=== PATIENT | male | born 1935 | race Caucasian/White ===

== ENCOUNTER 2021-05-31 14:38 | Inpatient (IN) | payer MEDICARE ==
[~2021-05-31] VITALS: Ht 177.8 cm; Wt 95.3 kg
[2021-05-31 15:14] LABS: BASOPHILS % 0.3 % (0.0-1.0); HEMATOCRIT 40.2 % (38.2-49.6); HEMOGLOBIN 12.5 g/dL (14.0-18.0); LYMPHOCYTES # (AUTO) 0.5 (1.0-3.2); LYMPHOCYTES % 4.3 % (18.0-39.1); MEAN CORPUSCULAR HGB CONC 31.1 g/dL (31-35); MEAN CORPUSCULAR VOLUME 99.8 fL (81-99); MONOCYTES # (AUTO) 0.8 (0.2-0.8); MONOCYTES % 6.9 % (4.4-11.3); NEUTROPHILS # (AUTO) 10.2 (2.1-6.9); PLATELET COUNT 285 x10e3/uL (140-360); RED BLOOD COUNT 4.03 x10e6/uL (4.3-5.7); RED CELL DISTRIBUTION WIDTH 15.4 % (11.7-14.4)
[2021-05-31 15:32] LABS: ALBUMIN 2.7 g/dL (3.5-5.0); ALBUMIN/GLOBULIN RATIO 0.6 (0.8-2.0); ANION GAP 20.2 mmol/L (8-16); CALCIUM 9.1 mg/dL (8.4-10.2); CREATININE, SERUM 0.97 mg/dL (0.72-1.25); POTASSIUM 5.2 mmol/L (3.5-5.1)
[2021-05-31] MEDS ORDERED: PIPERACILLIN/TAZOBACTAM 3.375 GM in SODIUM CHLORIDE 0.9% 50ML 50 ML IV ONE (16:15)
[2021-05-31] MEDS ORDERED: ACETAMINOPHEN 325 MG TAB PO ONE (16:15)
[2021-05-31] MEDS ORDERED: SODIUM CHLORIDE 0.9% 1000ML 1,000 ML IV STA (16:42)
[2021-05-31] MEDS ORDERED: DILTIAZEM HCL 5 MG/ML 5 ML VIAL IV ONE (16:45)
[2021-05-31] MEDS ORDERED: Vancomycin IV 1 GM in SODIUM CHLORIDE 0.9% 250ML 250 ML IV ONE (16:45)
[2021-05-31] MEDS ORDERED: LOSARTAN POTASS25 MG PO (18:45)
[2021-05-31] MEDS ORDERED: ATENOLOL50 MG PO (18:46)
[2021-05-31] MEDS ORDERED: MESALAMINE1 GM PO (18:48)
[2021-05-31 19:22] LABS: CREATINE KINASE MB 9.8 ng/mL (0-5.0)
[2021-05-31 21:05] VITALS: BP 157/56
[2021-05-31] MEDS ORDERED: QUETIAPINE FUMARATE 25 MG TAB PO ONE (21:37)
[2021-05-31] MEDS ORDERED: MELATONIN 5 MG TABLET PO ONE (21:37)
[2021-06-01] VITALS (10 sets, daily range): BP systolic 115–145; BP diastolic 57–90
[2021-06-01 00:58] LABS: CLARITY,URINE CLEAR (CLEAR); COLOR,URINE AMBER (YELLOW); KETONES,URINE 1+ (NEGATIVE); LEUKOCYTE ESTERASE ,URINE NEGATIVE (NEGATIVE); NITRITE,URINE NEGATIVE (NEGATIVE); PROTEIN,URINE DIPSTICK 1+ (NEGATIVE); URINE UROBILINOGEN 0.2 mg/dL (0.2 - 1)
[2021-06-01 01:04] LABS: AMORPHOUS SEDIMENT,URINE FEW (FEW); BACTERIA,URINE FEW /HPF; EPITHELIAL CELLS,URINE FEW /LPF; RBC,URINE 0-5 /HPF (0-5); WBC,URINE (MAN) 0-5 /HPF (0-5)
[2021-06-01 01:36] LABS: CREATININE,URINE RANDOM 126.12 mg/dL (63-166); TOTAL PROTEIN, URINE 35.7 mg/dL (1-14)
[2021-06-01 01:41] LABS: POTASSIUM,URINE 63.1 mmol/L
[2021-06-01] MEDS: PIPERACILLIN/TAZOBACTAM 3.375 GM in SODIUM CHLORIDE 0.9% 50ML 50 ML IV SCH ×5 (01:47→23:46)
[2021-06-01 06:20] LABS: BASOPHILS % 0.4 % (0.0-1.0); EOSINOPHILS # (AUTO) 0.1 (0.0-0.4); EOSINOPHILS % 0.7 % (0.0-6.0); HEMATOCRIT 35.6 % (38.2-49.6); HEMOGLOBIN 11.1 g/dL (14.0-18.0); LYMPHOCYTES # (AUTO) 0.6 (1.0-3.2); LYMPHOCYTES % 6.7 % (18.0-39.1); MEAN CORPUSCULAR HEMOGLOBIN 30.7 pg (28-32); MEAN CORPUSCULAR HGB CONC 31.2 g/dL (31-35); MEAN CORPUSCULAR VOLUME 98.3 fL (81-99); MONOCYTES # (AUTO) 0.6 (0.2-0.8); MONOCYTES % 6.4 % (4.4-11.3); NEUTROPHILS % 85.3 % (38.7-80.0); PLATELET COUNT 236 x10e3/uL (140-360); RED BLOOD COUNT 3.62 x10e6/uL (4.3-5.7); RED CELL DISTRIBUTION WIDTH 15.4 % (11.7-14.4)
[2021-06-01 06:47] LABS: ANION GAP 14.9 mmol/L (8-16); CALCIUM 8.3 mg/dL (8.4-10.2); CREATININE, SERUM 0.93 mg/dL (0.72-1.25); MAGNESIUM 1.9 MG/DL (1.3-2.1); POTASSIUM 3.9 mmol/L (3.5-5.1)
[2021-06-01] MEDS ORDERED: SODIUM CHLORIDE 0.9% 250ML 250 ML ONE (08:33)
[2021-06-01] MEDS: ATENOLOL 50 MG TAB PO SCH (09:00)
[2021-06-01] MEDS: SODIUM CHLORIDE 0.9% 1000ML 1,000 ML IV SCH (13:43)
[2021-06-01] MEDS: LINEZOLID 600 MG/D5W 300ML 300 ML IV SCH (14:30)
[2021-06-01 15:12] LABS: CREATINE KINASE MB 5.3 ng/mL (0-5.0)
[2021-06-01] MEDS: APIXAB 2.5 MG TABLET PO SCH (16:55)
[2021-06-01] MEDS: CLOTRIMAZOLE 1% CR 15 GM TOP SCH ×2 (20:33→23:25)
[2021-06-02] VITALS (8 sets, daily range): BP systolic 122–147; BP diastolic 74–94
[2021-06-02] MEDS: LINEZOLID 600 MG/D5W 300ML 300 ML IV SCH ×2 (02:30→14:00)
[2021-06-02] MEDS: SODIUM CHLORIDE 0.9% 1000ML 1,000 ML IV SCH (02:30)
[2021-06-02 05:20] LABS: ANION GAP 11.7 mmol/L (8-16); CREATININE, SERUM 0.82 mg/dL (0.72-1.25); POTASSIUM 3.7 mmol/L (3.5-5.1)
[2021-06-02] MEDS: PIPERACILLIN/TAZOBACTAM 3.375 GM in SODIUM CHLORIDE 0.9% 50ML 50 ML IV SCH ×3 (05:47→18:00)
[2021-06-02] MEDS: APIXAB 2.5 MG TABLET PO SCH ×2 (09:16→17:00)
[2021-06-02] MEDS: ATENOLOL 50 MG TAB PO SCH (09:21)
[2021-06-02] MEDS ORDERED: FUROSEMIDE INJ 10 MG/ML 4 ML VIAL IV ONE (10:45)
[2021-06-03] VITALS (9 sets, daily range): BP systolic 117–146; BP diastolic 62–101
[2021-06-03] MEDS: PIPERACILLIN/TAZOBACTAM 3.375 GM in SODIUM CHLORIDE 0.9% 50ML 50 ML IV SCH ×5 (01:00→23:21)
[2021-06-03] MEDS: LINEZOLID 600 MG/D5W 300ML 300 ML IV SCH ×2 (01:48→13:19)
[2021-06-03 08:24] LABS: ANION GAP 14.9 mmol/L (8-16); CALCIUM 8.2 mg/dL (8.4-10.2); CREATININE, SERUM 0.95 mg/dL (0.72-1.25); POTASSIUM 3.9 mmol/L (3.5-5.1)
[2021-06-03] MEDS: ATENOLOL 50 MG TAB PO SCH (08:46)
[2021-06-03] MEDS: APIXAB 2.5 MG TABLET PO SCH ×2 (08:46→17:04)
[2021-06-03] MEDS: CLOTRIMAZOLE 1% CR 15 GM TOP SCH (08:50)
[2021-06-04] VITALS (7 sets, daily range): BP systolic 130–136; BP diastolic 83–97
[2021-06-04] MEDS: LINEZOLID 600 MG/D5W 300ML 300 ML IV SCH (01:31)
[2021-06-04 03:52] LABS: BASOPHILS # (AUTO) 0.1 (0.0-0.1); BASOPHILS % 0.6 % (0.0-1.0); EOSINOPHILS # (AUTO) 0.2 (0.0-0.4); EOSINOPHILS % 2.7 % (0.0-6.0); HEMOGLOBIN 11.4 g/dL (14.0-18.0); LYMPHOCYTES # (AUTO) 0.8 (1.0-3.2); LYMPHOCYTES % 9.4 % (18.0-39.1); MEAN CORPUSCULAR HEMOGLOBIN 31.1 pg (28-32); MEAN CORPUSCULAR HGB CONC 31.7 g/dL (31-35); MEAN CORPUSCULAR VOLUME 98.4 fL (81-99); MONOCYTES # (AUTO) 0.6 (0.2-0.8); MONOCYTES % 6.8 % (4.4-11.3); NEUTROPHILS # (AUTO) 7.1 (2.1-6.9); PLATELET COUNT 231 x10e3/uL (140-360); RED BLOOD COUNT 3.66 x10e6/uL (4.3-5.7); RED CELL DISTRIBUTION WIDTH 15.5 % (11.7-14.4)
[2021-06-04 04:10] LABS: ANION GAP 12.7 mmol/L (8-16); CALCIUM 8.2 mg/dL (8.4-10.2); CREATININE, SERUM 0.86 mg/dL (0.72-1.25); POTASSIUM 3.7 mmol/L (3.5-5.1)
[2021-06-04] MEDS: PIPERACILLIN/TAZOBACTAM 3.375 GM in SODIUM CHLORIDE 0.9% 50ML 50 ML IV SCH ×3 (05:58→16:39)
[2021-06-04] MEDS: APIXAB 2.5 MG TABLET PO SCH ×2 (09:35→16:39)
[2021-06-04] MEDS: ATENOLOL 50 MG TAB PO SCH (09:35)
[2021-06-04] MEDS: CLOTRIMAZOLE 1% CR 15 GM TOP SCH (09:36)
[2021-06-04] MEDS: LINEZOLID 600 MG TAB PO SCH (14:25)
[2021-06-04] MEDS ORDERED: FUROSEMIDE INJ 10 MG/ML 2 ML VIAL IV ONE (18:00)
[2021-06-04] MEDS: TAMSULOSIN HCL 0.4 MG CAP PO SCH (21:09)
[2021-06-05] VITALS (10 sets, daily range): BP systolic 117–143; BP diastolic 74–93
[2021-06-05] MEDS: PIPERACILLIN/TAZOBACTAM 3.375 GM in SODIUM CHLORIDE 0.9% 50ML 50 ML IV SCH ×4 (01:10→17:58)
[2021-06-05] MEDS: APIXAB 2.5 MG TABLET PO SCH ×2 (08:14→17:58)
[2021-06-05] MEDS: ATENOLOL 50 MG TAB PO SCH (08:15)
[2021-06-05] MEDS: LINEZOLID 600 MG TAB PO SCH ×2 (08:15→22:55)
[2021-06-05] MEDS: CLOTRIMAZOLE 1% CR 15 GM TOP SCH (08:16)
[2021-06-05] MEDS ORDERED: ELIQUIS2.5 MG PO (13:41)
[2021-06-05] MEDS ORDERED: CLOTRIMAZOLE15 GM TOP (13:41)
[2021-06-05] MEDS ORDERED: FLOMAX0.4 MG PO (13:41)
[2021-06-05] MEDS ORDERED: FUROSEMIDE INJ 10 MG/ML 2 ML VIAL IV NR (18:15)
[2021-06-05] MEDS: TAMSULOSIN HCL 0.4 MG CAP PO SCH (22:55)
[2021-06-06] VITALS (11 sets, daily range): BP systolic 91–195; BP diastolic 60–169
[2021-06-06] MEDS: PIPERACILLIN/TAZOBACTAM 3.375 GM in SODIUM CHLORIDE 0.9% 50ML 50 ML IV SCH ×3 (00:55→08:52)
[2021-06-06 05:00] LABS: CALCIUM IONIZED 1.1 mmol/L (1.09-1.30)
[2021-06-06 05:24] LABS: ANION GAP 14.6 mmol/L (8-16); CALCIUM 8.5 mg/dL (8.4-10.2); CREATININE, SERUM 0.91 mg/dL (0.72-1.25); POTASSIUM 3.6 mmol/L (3.5-5.1)
[2021-06-06] MEDS: LINEZOLID 600 MG TAB PO SCH ×2 (08:11→22:58)
[2021-06-06] MEDS: APIXAB 2.5 MG TABLET PO SCH ×2 (08:13→17:51)
[2021-06-06] MEDS: CLOTRIMAZOLE 1% CR 15 GM TOP SCH (08:18)
[2021-06-06] MEDS: ATENOLOL 50 MG TAB PO SCH (08:51)
[2021-06-06 16:25] LABS: CLARITY,URINE SL CLOUDY (CLEAR); COLOR,URINE STRAW (YELLOW); LEUKOCYTE ESTERASE ,URINE NEGATIVE (NEGATIVE); NITRITE,URINE NEGATIVE (NEGATIVE)
[2021-06-06 16:26] LABS: KETONES,URINE NEGATIVE (NEGATIVE); PROTEIN,URINE DIPSTICK TRACE (NEGATIVE); URINE UROBILINOGEN 0.2 mg/dL (0.2 - 1)
[2021-06-06 16:37] LABS: BACTERIA,URINE MODERATE /HPF; EPITHELIAL CELLS,URINE RARE /LPF; RBC,URINE >50 /HPF (0-5)
[2021-06-06] MEDS: TAMSULOSIN HCL 0.4 MG CAP PO SCH (22:58)
[2021-06-07] VITALS (7 sets, daily range): BP systolic 128–161; BP diastolic 66–86
[2021-06-07] MEDS: CLOTRIMAZOLE 1% CR 15 GM TOP SCH (09:07)
[2021-06-07] MEDS: ATENOLOL 50 MG TAB PO SCH (09:07)
[2021-06-07] MEDS: APIXAB 2.5 MG TABLET PO SCH (09:07)
[2021-06-07] MEDS: LINEZOLID 600 MG TAB PO SCH (09:07)
[2021-06-07] MEDS ORDERED: ZYVOX600 MG PO (10:54)
[2021-06-07] MEDS ORDERED: LAC-HYDRIN FIV226 GM TOP (10:54)
[2021-06-07] MEDS ORDERED: ELIQUIS5 MG PO (10:54)
[2021-06-07 15:17] LABS: % IRON SATURATION 41 % (15-50); IRON 95 ug/dL (65-175); TOTAL IRON BINDING CAPACITY 230 ug/dL (261-478); TRANSFERRIN 164 mg/dL (174-364)
[2021-06-07] MEDS ORDERED: FUROSEMIDE 40 MG TAB PO ONE (15:30)
[2021-06-07] MEDS ORDERED: AMMONIUM LACTATE 12% LOTION 225GM BTL TOP SCH (17:00)
[2021-06-07] MEDS ORDERED: APIXABAN 5 MG TABLET PO SCH (17:00)
== END 2021-06-07 18:51 | disposition home or self-care (01) | DRG 872 ==
LOC: ER 15:02 → ERHOLD 17:49 → MED/SURG2 20:09
PROVIDERS: ADMIT Internal Medicine; ATTEND Internal Medicine
PROC: 02HV33Z Insertion of Infusion Device into Superior Vena Cava, Percutaneous Approach (ICD-10-PCS; principal; 2021-05-31)
DX: A41.9 Sepsis, unspecified organism (principal); L03.116 Cellulitis of left lower limb; M62.82 Rhabdomyolysis; E87.2 Acidosis; L03.115 Cellulitis of right lower limb; I48.20 Chronic atrial fibrillation, unspecified; E87.0 Hyperosmolality and hypernatremia; N17.9 Acute kidney failure, unspecified; R65.20 Severe sepsis without septic shock; E87.5 Hyperkalemia; B35.1 Tinea unguium; I48.91 Unspecified atrial fibrillation; Z79.01 Long term (current) use of anticoagulants; I89.0 Lymphedema, not elsewhere classified; E87.8 Other disorders of electrolyte and fluid balance, not elsewhere classified; I87.009 Postthrombotic syndrome without complications of unspecified extremity; L85.9 Epidermal thickening, unspecified; L91.8 Other hypertrophic disorders of the skin; I87.2 Venous insufficiency (chronic) (peripheral); E83.51 Hypocalcemia; E87.70 Fluid overload, unspecified; H91.90 Unspecified hearing loss, unspecified ear
CPT/HCPCS: 36415; 36569; 70450; 71045; 76770; 80048; 80053; 81001; 82550; 82553; 82570; 83540; 83605; 83735; 84100; 84133; 84156; 84300; 84466; 84484; 85025; 87040; 87086; 93005; 93306; 97139; 99251; 99285; J1940; J2020; J2543; J3370; J7030; J7050; U0002